=== PATIENT | male | born 1965 | race Caucasian/White ===

== ENCOUNTER 2019-04-16 23:00 | Emergency (ER) | payer OTHER ==
[~2019-04-16] VITALS: Ht 167.6 cm; Wt 69.8 kg
[~2019-04-16 23:00] MED LIST: ASPIRIN EC81 M1 PO; ATORVASTATIN CA40 MG PO; COLACE100 MG PO; FLEXERIL PO; GABAPENTIN800 M1 PO; GRALISE600 MG PO; IBUPROFEN 800800 MG PO; LIPITOR40 MG PO; LISINOPRIL20 MG PO; NEURONTIN600 MG PO; NORCO 5-325 TA1 EACH PO; PERCOCET 5-3251 EACH PO; PERCOCET PO; PLAVIX 75 MG TA75 M1 PO; SENNA PO; TOPROL XL25 MG PO; TRAMADOL 50 MG50 MG PO; ULTRAM 50MG TAB50 MG PO; VOLTAREN GEL 1100 GM TRANSDERM; ZANTAC 150MG T150 M1 PO
[2019-04-17 00:29] LABS: ABSOLUTE NEUTROPHILS 6.8 thou/uL (1.4-8.2); EOSINOPHILS 2.4 % (0.0-3.0); LYMPHOCYTES 31.6 % (24.0-44.0); MCH 18.7 pg (26.0-34.0); MCHC 29.3 g/dL (28.0-37.0); MCV 63.8 fL (80.0-100.0); MONOCYTES 7.7 % (1.0-8.0); PLATELET COUNT 516 thou/uL (150-400); POLYS 57.3 % (36.0-66.0); RBC 5.33 mil/uL (4.50-6.00); RDW 19.6 % (10.5-14.5); WBC 11.9 thou/uL (4.0-11.0)
[2019-04-17 00:38] LABS: ANION GAP 10 mmol/L (7-16); BUN 15 mg/dL (7-18); CALCIUM 9.5 mg/dL (8.5-10.1); CHLORIDE 98 mmol/L (98-107); CO2 27 mmol/L (21-32); CREATININE 0.8 mg/dL (0.7-1.3); GLUCOSE 383 mg/dL (74-106); POTASSIUM 4.2 mmol/L (3.5-5.1); SODIUM 135 mmol/L (136-145)
[2019-04-17 00:48] LABS: LIPASE 159 U/L (73-393); TROPONIN-I <0.06 ng/mL (<0.06)
[2019-04-17 01:06] VITALS: BP 104/56
--- NOTE | 2019-04-17 08:53 | EKG ---
[facility] [employer] [place] [address] ELECTROCARDIOGRAM REPORT Name: DEJAMAURICE SUSSY Room #: [facility]P [facility]hel[facility] [id number] Admission: 04/16/19 Attend Phys: Discharge: 04/17/19 Date of : 67 Report #: [id number] THIS REPORT FOR: //name// [facility] ED Test Date: 2019-04-16 Test Time: 23:21:27 Pat Name: MAURICE SHORT Department: Room: Gender: M [employer] Internship: KINJAL : 1965 Requested By: Maurice Bledsoe Order Number: [id number] MD: Carlos Parker Measurements Intervals [place] Rate: 104 P: 54 CA: 155 QRS: -17 QRSD: 61 T: 133 QT: 298 QTc: 392 Interpretive Statements Sinus tachycardia Poor R wave progression Nonspecific ST and T wave abnormality Compared to ECG 10/30/2013 16:38:41 Heart rate has increased Nonspecific ST and T wave abnormality is new Electronically Signed On 04-17-2019 8:52:46 [employer] by Carlos Parker [email or web address] <ELECTRONICALLY SIGNED> By: Carlos Parker MD, [facility] 04/17/19 [id number] 20 20 Carlos Parker MD, [facility] /EPI
== END 2019-04-17 01:14 | disposition home or self-care (01) ==
LOC: ER 23:00
PROVIDERS: Emergency Medicine
DX: S29.8XXA Other specified injuries of thorax, initial encounter (principal); M79.642 Pain in left hand; F17.200 Nicotine dependence, unspecified, uncomplicated; Z88.6 Allergy status to analgesic agent; Z88.0 Allergy status to penicillin; Z88.5 Allergy status to narcotic agent; Z79.899 Other long term (current) drug therapy; Z79.82 Long term (current) use of aspirin; Z95.5 Presence of coronary angioplasty implant and graft; Z90.49 Acquired absence of other specified parts of digestive tract; W22.8XXA Striking against or struck by other objects, initial encounter; Y93.89 Activity, other specified; Y92.69 Other specified industrial and construction area as the place of occurrence of the external cause; Y99.9 Unspecified external cause status